=== PATIENT | female | born 1995 | race Caucasian/White ===

== ENCOUNTER 2020-02-26 13:44 | Emergency (ER) | payer BC, SELFPAY ==
[2020-02-26 13:55] VITALS: BP 111/76; PULSE 73; RESP 20; TEMP 36.7; O2SAT 100; BMI 17.7
--- NOTE | 2020-02-26 14:03 | HMH.EDUTC ---
[facility] [place] Impression: Laceration of left index finger Qualifiers: Encounter type: initial encounter Damage to nail status: without damage Foreign body presence: without foreign body Qualified Code(s): S61.211A - Laceration without foreign body of left index finger without damage to nail, initial encounter Disposition: Home, Self-Care Condition on Discharge: Good Instructions: How to Care for a Laceration After Repair, DI for Laceration Repair With Dermabond Additional Instructions: Keep the wound clean and dry. Watch the for signs of infection, such as redness, swelling, drainage, fever. etc. Take tylenol or ibuprofen for pain. Follow up with your regular doctor or return here for any problems. GO TO THE ER FOR ANY WORSENING SYMPTOMS OR CONCERNS. Referrals: Jersey Crook MD [Primary Care Provider] - Time of Disposition: 15:10 Medical Decision Making - Medical Records Medical records reviewed: No: I reviewed the patient's medical records. - Mike Inquiry Pt receiving controlled substance: No Vital Signs: 02/26/20 13:55 02/26/20 15:20 Temperature 98.1 F 98.1 F Temperature Source Oral Pulse Rate 73 Pulse Rate [Right Brachial] 73 Respiratory Rate 20 20 Blood Pressure 111/76 Blood Pressure [Right Arm] 111/76 Blood Pressure Mean [Right Arm] 87 Blood Pressure Source [Right Arm] Automatic Cuff Blood Pressure Position [Right Arm] Sitting 02 Sat by Pulse Oximetry 100 Oxygen Delivery Method Room Air Orders (Tests/Meds): ED MEDICATIONS Discontinued Medications Generic Name Dose Route Start Last Admin Trade Name Freq PRN Reason Stop Dose Admin Tetanus/Reduced Diphtheria/Acell Pertussis 0.5 ml 02/26/20 14:03 02/26/20 14:10 Adacel Tdap 0.5ml Syringe IM 02/26/20 14:04 0.5 ml .ONCE ONE Administration [facility] [place] - General Stated complaint: ao cut with knife L hand pointer finger Time Seen by Provider: 02/26/20 14:03 Mode of Arrival: Ambulatory Source of Information: Patient Limitations: No Limitations Description of Symptoms (Recalled from Triage Doc. by RN): LACERATION TO LEFT INDEX FINGER WITH KITCHEN KNIFE APPROX 45 MINUTES AGO. PATIENT UNSURE OF WHEN LAST TETANUS VACCINE WAS HEENT Symptoms (Recalled from RN notes): No Resp Symptoms (Recalled from RN notes): No Skin Symptoms (Recalled from RN notes): Yes MS Symptoms (Recalled from RN notes): No Functional Status (Recalled from RN notes): WNL - History of Present Illness Provider Complaint: She states that she was cutting open a package when the knife slipped and cut her left index finger near the tip. - Related Data Home Medications Medication Instructions Recorded Confirmed etonogestrel 68 mg subdermal SUBDERMAL each 09/02/19 11/20/19 implant Previous Rx's Medication Instructions Recorded diazepam 10 mg tablet 10 mg PO ONCE PRN #1 tab 10/07/19 oxycodone-acetaminophen 5 mg-325 1 tab PO Q4-6H PRN #7 tab 10/08/19 mg tablet oseltamivir 75 mg capsule 75 mg PO DAILY 10 Days #10 cap 12/28/19 Allergies Allergy/AdvReac Type Severity Reaction Status Date / Time No Known Allergies Allergy Verified 11/20/19 09:06 - Worker's Comp Is this a Worker's Comp case?: No [facility] History - Hepatitis A Screen Drug use history?: No High risk sexual behaviors?: No History of sexually transmitted infection?: No Currently employed?: No Childcare worker?: No Do you have indoor plumbing?: Yes Do you have electricity?: Yes Attestation statement:: This patient has been screened for Hepatitis A risk factors. I have reviewed the patient's past medical history: Yes Medical History: Denies:: Diabetes Mellitus Type 1, Diabetes Mellitus Type 2 Other Surgeries: Yes: No Previous Surgery Amputation: No Fractures: No - Social History Smoking Status: Never smoker Alcohol Intake: never Substance Use Type: denies use Occupational Status: other Housing: house Household Members:
[2020-02-26 15:20] VITALS: BP 111/76; PULSE 73; RESP 20; TEMP 36.7; O2SAT 100
== END 2020-02-26 15:23 | disposition home or self-care (01) ==
PROVIDERS: Emergency Provider Nurse Practitioner Family; PCP Family Medicine
DX: S61.211A Laceration without foreign body of left index finger without damage to nail, initial encounter (principal); W26.0XXA Contact with knife, initial encounter; Y92.019 Unspecified place in single-family (private) house as the place of occurrence of the external cause; Z23 Encounter for immunization
CPT/HCPCS: 12001; 90471; 90715; 99201

== ENCOUNTER 2021-09-19 14:06 | Emergency (ER) | payer BC, SELFPAY ==
[2021-09-19 14:08] VITALS: BP 132/93; PULSE 104; RESP 20; TEMP 36.7; O2SAT 100; BMI 23.8
--- NOTE | 2021-09-19 14:17 | ECG_ITS ---
APPROVED REPORT Exam: Resting ECG HR:106 bpm ECG Measurements Heart Rate [address] 122 P 67 QRSd 90 QRS 42 QT 344 T 54 QTc 456 Conclusion Sinus tachycardia RSR' or QR pattern in V1 suggests right ventricular conduction delay Borderline ECG Electronically signed by : Howard Ragland MD 09/20/2021 12:16:28
--- NOTE | 2021-09-19 15:01 | XR_ITS ---
PROCEDURE: XR CHEST PORTABLE CLINICAL HISTORY: chest pressure/heaviness COMPARISON: No exams were available for comparison FINDINGS: The cardiomediastinal silhouette and pulmonary vascularity are within normal limits. The lungs are clear without infiltrates, suspicious nodules, or pleural effusions. No acute bony abnormalities. IMPRESSION: No acute findings. Dictated by: Pierre Mcknight MD 09/19/2021 16:00 Pierre Mcknight MD in [place] 09/19/2021 16:00
--- NOTE | 2021-09-19 15:02 | HMH.EDGENADL ---
ED Disposition Clinical Impression: Atypical chest pain Disposition: Home, Self-Care Condition on Discharge: Good Instructions: DI for Atypical Chest Pain Referrals: Jersey Crook MD [Primary Care Provider] - - Critical Care Critical Care Time: No Attestation: On 09/19/21, the high probability of a clinically significant, sudden or life threatening deterioration of the following system(s) required my full and direct attention, intervention and personal management. The time I documented below is in addition to time spent performing reported procedures but includes the following listed in this critical care notation. Medical Decision Making - Mike Inquiry Pt receiving controlled substance: Yes Mike was queried for this patient: Yes Risks and benefits of using a controlled substance: were discussed with pt by me Vital Signs: 09/19/21 14:08 Temperature 98.0 F Temperature Source Oral Pulse Rate [Left Radial] 104 H Respiratory Rate 20 Blood Pressure [Right Arm] 132/93 H Blood Pressure Mean [Right Arm] 106 Blood Pressure Source [Right Arm] Automatic Cuff Blood Pressure Position [Right Arm] Sitting 02 Sat by Pulse Oximetry 100 Oxygen Delivery Method Room Air - Lab Data Lab Results 09/19/21 14:22: WBC 7.7, RBC 4.76, Hgb 14.6, Hct 43.3, MCV 90.9, MCH 30.6, MCHC 33.7, RDW 12.3, Plt Count 281, MPV 8.8, Neut % (Auto) 65.8, Lymph % (Auto) 27.6, [place] % (Auto) 4.8, Eos % (Auto) 1.2, Baso % (Auto) 0.8, Neut # (Auto) 5.1, Lymph # (Auto) 2.1, [place] # (Auto) 0.4, Eos # (Auto) 0.1, Baso # (Auto) 0.1 09/19/21 14:22: D-Dimer 0.66 H 09/19/21 14:22: Sodium 138, Potassium 3.4 L, Chloride 101, Carbon Dioxide 27, Anion Gap 13.4, BUN 14, Creatinine 0.70, Estimated Creat Clear 112, Estimated GFR 100, Est GFR ( Amer) 121, Glucose 118 H, Calcium 9.3, Total Bilirubin 0.3, AST 41 H, ALT 25, Alkaline Phosphatase 38, Troponin I < 0.01, Total Protein 7.6, Albumin 4.7, Globulin 2.9, Albumin/Globulin Ratio 1.6, Lipase 50 Result diagrams: 09/19/21 14:22 09/19/21 14:22 Orders (Tests/Meds): ED MEDICATIONS Discontinued Medications Generic Name Dose Route Start Last Admin Trade Name Daniel PRN Reason Stop Dose Admin Sodium Chloride 500 mls @ 999 mls/hr 09/19/21 15:15 09/19/21 15:12 Sod Chlor 0.9% 1000ml Bag IV 09/19/21 15:45 999 mls/hr .Q31M LON Administration Lorazepam 0.5 mg 09/19/21 15:02 09/19/21 15:12 Lorazepam 0.5mg Tablet PO 09/19/21 15:03 0.5 mg ONCE ONE Administration Ondansetron HCl 4 mg 09/19/21 15:01 09/19/21 15:12 Ondansetron 4mg/2ml Vial IV 09/19/21 15:02 4 mg ONCE ONE Administration ORDERS Category Date Time Status Troponin I Q3H Lab 09/19/21 18:15 Ordered Troponin I Q3H Lab 09/19/21 21:15 Ordered Medical Decision Narrative: DDx includes but not limited to toxic ingestion, PE, arrhythmia, ACS, pancreatitis. HDS, NAD, well appearing, mildly tachycardic, on room air. EKG shows sinus tachycardia without acute ischemic changes. Low risk Wells PE score, D dimer 0.66. Per YEARS criteria does not require advanced imaging for PE at this time. CXR without acute findings. Troponin wnl. Labs cbc and bmp, lipase without acute and actionable findings. Tachycardia improved in ED after receiving ivf bolus, ativan po. Stable for discharge. Given ED return precautions. General Adult HPI - General Chief complaint: Chest Pain Stated complaint: chest pressure Time Seen by Provider: 09/19/21 14:30 Mode of Arrival: Ambulatory Source of Information: Patient Limitations: No Limitations Description of Symptoms (Recalled from ER Triage Doc. by RN): c/o chest pressure with comes in waves after smoking thc - History of Present Illness HPI narrative: 25 yo female w/ no reported pmh presents for chest pain. patient states she took thc gummy earlier today by mouth then three hours later developing bilateral lower chest heaviness along with some generalized tremulousness. St
[2021-09-19 15:07] LABS: Basophils # 0.1 K/mm3 (0-0.2); Basophils % 0.8 % (0.1-2.0); Eosinophils # 0.1 K/mm3 (0.0-0.4); Eosinophils % 1.2 % (0.1-12.0); Hematocrit 43.3 % (37.0-47.0); Hemoglobin 14.6 g/dL (12.2-16.2); Lymphocytes # 2.1 K/mm3 (0.7-4.5); Lymphocytes % 27.6 % (10-50); Mean Corpuscular HGB Conc 33.7 g/dL (31.8-35.4); Mean Corpuscular Hemoglobin 30.6 pg (27.0-31.2); Mean Corpuscular Volume 90.9 fl (81-99); Mean Platelet Volume 8.8 fl (7.4-10.4); Monocytes # 0.4 K/mm3 (0.1-1.0); Monocytes % 4.8 % (1.7-9.3); Neutrophils # 5.1 K/mm3 (1.8-7.8); Neutrophils % 65.8 % (37.0-80.0); Platelet Count 281 K/mm3 (142-424); Red Blood Count 4.76 M/mm3 (4.20-5.40); Red Cell Distribution Width 12.3 % (11.5-17.5); White Blood Count 7.7 K/mm3 (4.8-10.8)
[2021-09-19 15:12] LABS: Alanine Aminotransferase 25 U/L (12-78); Albumin Level 4.7 g/dl (3.5-5.0); Albumin/Globulin Ratio 1.6 (1.1-1.8); Alkaline Phosphatase 38 U/L (38-126); Anion Gap 13.4 mEq/L (5-15); Aspartate Amino Transferase 41 U/L (14-36); Bilirubin,Total 0.3 mg/dl (0.2-1.3); Blood Urea Nitrogen 14 mg/dl (7-17); Calcium 9.3 mg/dl (8.4-10.2); Carbon Dioxide 27 mmol/L (22.0-30.0); Chloride 101 mmol/L (98-107); Creatinine Clearance Estimated 112 mL/min (50-200); Estimated Glomerular Filt Rate 100 ml/min (>60); GFR (African American) 121 ML/MIN (>60); Globulin 2.9 g/dL (1.3-3.2); Glucose 118 mg/dl (74-100); Lipase 50 U/L (23-300); Potassium 3.4 mmoL/L (3.5-5.1); Sodium 138 mmol/L (136-145); Total Protein,Serum 7.6 g/dl (6.3-8.2)
[2021-09-19 15:18] LABS: D-Dimer 0.66 ug/mL (0.0-0.5)
[2021-09-19 15:25] LABS: Troponin I < 0.01 ng/ml (0.00-0.034)
[2021-09-19 16:58] VITALS: BP 127/84; PULSE 92; RESP 18; TEMP 36.6; O2SAT 99
== END 2021-09-19 17:00 | disposition home or self-care (01) ==
PROVIDERS: Emergency Provider Student in an Organized Health Care Education/Training Program; PCP Family Medicine
DX: R07.89 Other chest pain (principal)
CPT/HCPCS: 71045; 80053; 83690; 84484; 85025; 85378; 93005; 96365; 96375; 99283; J2405

== ENCOUNTER → 2022-01-05 14:36 | Outpatient (CLI) | payer BC, SELFPAY ==
--- NOTE | 2022-01-05 14:40 | CT_ITS ---
FINAL REPORT TECHNIQUE: Multiple axial CT sections were performed from the foramen magnum to the vertex. Coronal reformatted images were also obtained. Precontrast and postcontrast injection images were obtained. This study was performed with technique to keep radiation doses as low as reasonably achievable, (ALARA). Individualized dose reduction techniques using automated exposure control or adjustment of mA and/or kV according to the patient size were employed. CLINICAL HISTORY: PERSISTENT HEADACHE patient states x several mos, worse in the last month and 1/2 FINDINGS: The ventricles are normal in size. There is no evidence of hemorrhage. No masses are identified. No extra-axial fluid collection is seen. The sinuses are normal. No osseous abnormality is seen on the bone window images. Postcontrast images demonstrate no abnormal enhancement. IMPRESSION: Unremarkable CT of the head with and without contrast. Reviewed, Interpreted and Dictated by Anthony Carpenter III, MD Transcribed by Miriam Lechuga Authenticated by Anthony Carpenter III, MD on 01/05/2022 04:06:23 PM [facility]
== END ==
LOC: RAD 14:36
PROVIDERS: PCP Family Medicine; Visit Provider Family Medicine
DX: G44.52 New daily persistent headache (NDPH) (principal)
CPT/HCPCS: 70470; Q9967

== ENCOUNTER 2022-04-05 11:05 | Emergency (ER) | payer BC, SELFPAY ==
[2022-04-05 11:21] VITALS: BP 111/70; PULSE 75; RESP 17; TEMP 36.7; O2SAT 99; BMI 24.5
--- NOTE | 2022-04-05 11:35 | HMH.EDUTC ---
[facility] [place] Clinical Impression: Viral syndrome, Gastroenteritis Disposition: Home, Self-Care Condition on Discharge: Good Instructions: Viral Gastroenteritis, DI for Viral Gastroenteritis -- Adult, Ondansetron Additional Instructions: Drink plenty of fluids. Take tylenol or ibuprofen for pain or fever. Take the medications as directed. Follow up with your regular doctor. GO TO THE ER FOR ANY WORSENING SYMPTOMS Prescriptions: Ondansetron [Zofran 4mg ODT] 4 mg PO Q8HP PRN #20 tab PRN Reason: Nausea Transmission Status: Received by [id number] Referrals: Jersey Crook MD [Primary Care Provider] - Forms: Work/School Release Time of Disposition: 12:38 Medical Decision Making - Medical Records Medical records reviewed: No: I reviewed the patient's medical records. - Mike Inquiry Pt receiving controlled substance: No Vital Signs: 04/05/22 11:21 04/05/22 12:59 Temperature 98.0 F 98.0 F Temperature Source Oral Pulse Rate 75 Pulse Rate [Left Radial] 75 Respiratory Rate 17 17 Blood Pressure 111/70 Blood Pressure [Right Arm] 111/70 Blood Pressure Mean [Right Arm] 83 02 Sat by Pulse Oximetry 99 Orders (Tests/Meds): ED MEDICATIONS Discontinued Medications Generic Name Dose Route Start Last Admin Trade Name Freq PRN Reason Stop Dose Admin Sodium Chloride 500 mls @ 999 mls/hr 04/05/22 12:15 04/05/22 12:22 Sod Chlor 0.9% 1000ml Bag IV 04/05/22 12:45 Not Given .Q31M LON Sodium Chloride 1,000 mls @ 999 mls/hr 04/05/22 12:30 04/05/22 12:22 Sod Chlor 0.9% 1000ml Bag IV 04/05/22 13:30 999 mls/hr .Q1H1M LON Administration Ondansetron HCl 4 mg 04/05/22 12:03 04/05/22 12:20 Ondansetron 4mg/2ml Vial IV 04/05/22 12:04 4 mg ONCE ONE Administration [facility] [place] - General Stated complaint: vomiting, diarrhea, fever Time Seen by Provider: 04/05/22 11:35 Description of Symptoms (Recalled from Triage Doc. by RN): patient comes in today for a stomach virus. patient complains of vomitting and diarrhea. patient states symptoms began sunday night. HEENT Symptoms (Recalled from RN notes): No Resp Symptoms (Recalled from RN notes): No Skin Symptoms (Recalled from RN notes): No MS Symptoms (Recalled from RN notes): No Functional Status (Recalled from RN notes): wnl - History of Present Illness Provider Complaint: She states that she has had n/v/d for the past 3 days. Her vomiting has stopped, but she has continued to have the diarrhea. She denies any cough, congestion. - Related Data Previous Rx's Medication Instructions Recorded Ondansetron [Zofran 4mg ODT] 4 mg PO Q8HP PRN #20 tab 04/05/22 Allergies Allergy/AdvReac Type Severity Reaction Status Date / Time No Known Allergies Allergy Verified 04/05/22 11:24 - Worker's Comp Is this a Worker's Comp case?: No [facility] History - Hepatitis A Screen Attestation statement:: This patient has been screened for Hepatitis A risk factors. I have reviewed the patient's past medical history: Yes Medical History: Denies:: Diabetes Mellitus Type 1, Diabetes Mellitus Type 2 Other Surgeries: Yes: No Previous Surgery Amputation: No Fractures: No - Social History Smoking Status: Never smoker Alcohol Intake: never Alcohol Intake Frequency:: other Substance Use Type: denies use Occupational Status: employed Housing: house Household Members: family Family Hx:: Non-contributory Comment: Preg#1-[place]ligo ROS Obtained: Yes All systems reviewed & no additional complaints - Constitutional Constitutional: Reports as per HPI - Eyes Eyes: Denies eye discharge - ENT Ears, Nose, Mouth, and Throat: Reports as per HPI - Cardiovascular Cardiovascular: Denies chest pain - Respiratory Respiratory: Denies chest congestion, Denies cough, Denies dyspnea, Denies stridor, Denies wheezing - Gastrointestinal Gastrointestingal: Reports: as per HPI - Genitourinary F
[2022-04-05 12:59] VITALS: BP 111/70; PULSE 75; RESP 17; TEMP 36.7
== END 2022-04-05 12:59 | disposition home or self-care (01) ==
PROVIDERS: Emergency Provider Nurse Practitioner Family; PCP Family Medicine
DX: B34.9 Viral infection, unspecified (principal); K52.9 Noninfective gastroenteritis and colitis, unspecified
CPT/HCPCS: 96374; 99212; G0463; J2405

== ENCOUNTER → 2022-09-05 12:05 | Outpatient (CLI) | payer BC, SELFPAY ==
[2022-09-05 12:47] LABS: Adenovirus,PCR Not Detected (NotDetected); Bordetella Pertussis Not Detected (NotDetected); Chlamydophila Pneumoniae, PCR Not Detected (NotDetected); Coronavirus 19, PCR Not Detected (NotDetected); Coronavirus 229E Not Detected (NotDetected); Coronavirus NL63 Not Detected (NotDetected); Coronavirus OC43 Not Detected (NotDetected); Coronovirus HKU1,PCR Not Detected (NotDetected); Human Metapneumovirus Not Detected (NotDetected); Influenza A, PCR Not Detected (NotDetected); Influenza AH1, 2009 Not Detected (NotDetected); Influenza AH1, PCR Not Detected (NotDetected); Influenza AH3,PCR Not Detected (NotDetected); Influenza B, PCR Not Detected (NotDetected); Mycoplasma Pneumoniae, PCR Not Detected (NotDetected); Parainfluenza 2, PCR Not Detected (NotDetected); Parainfluenza 3, PCR Not Detected (NotDetected); Parainfluenza 4, PCR Not Detected (NotDetected); Respiratory Syncytial Virus Not Detected (NotDetected); Rhinovirus/Enterovirus Not Detected (NotDetected)
[2022-09-05 13:00] LABS: Basophils # 0.1 K/mm3 (0-0.2); Basophils % 2.6 % (0.1-2.0); Eosinophils # 0.1 K/mm3 (0.0-0.4); Eosinophils % 0.9 % (0.1-12.0); Hematocrit 41.9 % (37.0-47.0); Hemoglobin 13.5 g/dL (12.2-16.2); Lymphocytes # 1.6 K/mm3 (0.7-4.5); Lymphocytes % 29.8 % (10-50); Mean Corpuscular HGB Conc 32.3 g/dL (31.8-35.4); Mean Corpuscular Hemoglobin 29.7 pg (27.0-31.2); Mean Corpuscular Volume 91.9 fl (81-99); Mean Platelet Volume 8.5 fl (7.4-10.4); Monocytes # 0.4 K/mm3 (0.1-1.0); Monocytes % 8.2 % (1.7-9.3); Neutrophils # 3.1 K/mm3 (1.8-7.8); Neutrophils % 58.5 % (37.0-80.0); Platelet Count 234 K/mm3 (142-424); Red Blood Count 4.56 M/mm3 (4.20-5.40); Red Cell Distribution Width 12.9 % (11.5-17.5); White Blood Count 5.4 K/mm3 (4.8-10.8)
[2022-09-06 01:03] LABS: Parainfluenza 1, PCR Detected (NotDetected)
== END ==
PROVIDERS: PCP Family Medicine; Visit Provider Family Medicine
DX: Z20.822 Contact with and (suspected) exposure to COVID-19 (principal); J12.2 Parainfluenza virus pneumonia
CPT/HCPCS: 36415; 85025; 87581; 87632; 87798; C9803; U0003; U0005

== ENCOUNTER → 2022-10-11 15:25 | Outpatient (CLI) | payer BC, SELFPAY | PROVIDERS: PCP Family Medicine; Visit Provider Nurse Practitioner Obstetrics & Gynecology | DX: Z34.90 Encounter for supervision of normal pregnancy, unspecified, unspecified trimester (principal) | CPT/HCPCS: 36415; 84702 ==

== ENCOUNTER → 2022-10-18 11:50 | Outpatient (CLI) | payer BC, SELFPAY ==
[2022-10-18 12:35] LABS: Basophils # 0.1 K/mm3 (0-0.2); Basophils % 0.5 % (0.1-2.0); Eosinophils # 0.1 K/mm3 (0.0-0.4); Eosinophils % 0.8 % (0.1-12.0); Hematocrit 38.4 % (37.0-47.0); Hemoglobin 13.1 g/dL (12.2-16.2); Mean Corpuscular HGB Conc 34.1 g/dL (31.8-35.4); Mean Corpuscular Hemoglobin 31.5 pg (27.0-31.2); Mean Corpuscular Volume 92.2 fl (81-99); Mean Platelet Volume 8.4 fl (7.4-10.4); Monocytes # 0.4 K/mm3 (0.1-1.0); Monocytes % 4.6 % (1.7-9.3); Neutrophils # 6.5 K/mm3 (1.8-7.8); Neutrophils % 72.1 % (37.0-80.0); Platelet Count 266 K/mm3 (142-424); Red Blood Count 4.16 M/mm3 (4.20-5.40); Red Cell Distribution Width 13.4 % (11.5-17.5)
[2022-10-18 18:56] LABS: Amphetamine/Metha Screen,Urine Negative ng/ml (<1000); Benzodiazepines Screen,Urine Negative ng/ml (<200)
[2022-10-18 18:57] LABS: Barbiturates Screen,Urine Negative ng/ml (<200); Cannabinoid Screen,Urine Negative ng/ml (<50)
[2022-10-18 18:58] LABS: Cocaine Screen,Urine Negative ng/ml (<300)
[2022-10-18 18:59] LABS: Methadone Screen,Urine Negative ng/ml (<300); Opiate Screen,Urine Negative ng/ml (<300)
[2022-10-18 19:00] LABS: Phencyclidine Screen,Urine Negative ng/ml (<25)
[2022-10-19 07:05] LABS: Rubella Antibodies, IgG <0.90 index (Immune >0.99)
[2022-10-19 09:32] LABS: Rapid Plasma Reagin Ab Titer Non Reactive (NonRea<1:1)
[2022-10-21 14:25] LABS: Neisseria gonorrhoeae, NAA Negative (Negative)
[2022-10-30 21:18] LABS: HIV Screen 4th Generation wRfx NON REACTIVE; Hepatitis B Surface Antigen NEAGTIVE; Hepatitis C Antibody <0.1
== END ==
PROVIDERS: PCP Family Medicine; Visit Provider Obstetrics & Gynecology
DX: Z34.90 Encounter for supervision of normal pregnancy, unspecified, unspecified trimester (principal)
CPT/HCPCS: 36415; 80305; 85025; 86593; 86703; 86762; 86850; 87086; 87340; 87380; 87491; 87591; G0432

== ENCOUNTER → 2022-12-14 13:28 | Outpatient (CLI) | payer BC, SELFPAY ==
--- NOTE | 2022-12-14 13:28 | US_ITS ---
FINAL REPORT CLINICAL HISTORY: 20 week anatomy scan FINDINGS: There is a single live intrauterine gestation. Presentation is breech. The cervix is closed and measures 3.14 cm. Placenta is anterior, grade 1. movement is noted. Cardiac activity is noted. Heart rate measured at 149 beats per minute. Three-vessel cord with satisfactory umbilical cord insertion. Four-chamber heart is noted. brain and ventricles are unremarkable. Chest and diaphragm are unremarkable. ABDOMEN: Kidneys are not well visualized. Stomach is unremarkable. SPINE: No anomalies identified. Both arms and legs noted. AMNIOTIC FLUID: Appropriate amount. MEASUREMENTS: ULTRASOUND AGE: 19 weeks 0 days. GESTATION AGE: 19 weeks 0 days. ESTIMATED WEIGHT: 275 g GROWTH PERCENTILE: 53% LMP percentile BPD: 4.3 cm corresponding with 19 weeks 1 days. OFD: 5.4 cm corresponding with 19 weeks 1 days. HC: 15.4 cm corresponding with 18 weeks 3 days. AC: 14.2 cm corresponding with 19 weeks 4 days. FL: 2.9 cm corresponding with 18 weeks 6 days. CEREBELLUM: 1.9 cm corresponding with 19 weeks 3 days. HUMERUS: 2.9 cm corresponding with 19 weeks 3 days. HC/AC: 1.09 CI: 80% FL/BPD: 67% FL/AC: 20% IMPRESSION: Single living IUP with an ultrasound age of 19 weeks 0 days. No gross anomalies noted. Reviewed, Interpreted and Dictated by Rani Patel MD Transcribed by Miriam Lechuga Authenticated and [facility]
== END ==
PROVIDERS: PCP Family Medicine; Visit Provider Obstetrics & Gynecology
DX: Z34.90 Encounter for supervision of normal pregnancy, unspecified, unspecified trimester (principal); Z3A.20 20 weeks gestation of pregnancy
CPT/HCPCS: 76811

== ENCOUNTER → 2023-01-01 09:21 | Outpatient (CLI) | payer BC, SELFPAY ==
--- NOTE | 2023-01-01 09:22 | US_ITS ---
FINAL REPORT CLINICAL HISTORY: re-scan previous poorly seen kidneys FINDINGS: A limited ultrasound was performed for re-evaluation of the kidneys. Presentation is cephalic. The placenta is anterior. The fetus is active. The cervix measures 3.2 cm. Cardiac activity measures 150 beats per minute. The kidneys are visualized and appear normal. IMPRESSION: Limited exam demonstrates normal appearance of kidneys. Reviewed, Interpreted and Dictated by Anthony Carpenter III, MD Transcribed by Miriam Lechuga Authenticated and [facility]
== END ==
PROVIDERS: PCP Family Medicine; Visit Provider Obstetrics & Gynecology
DX: Z34.90 Encounter for supervision of normal pregnancy, unspecified, unspecified trimester (principal); Z3A.20 20 weeks gestation of pregnancy
CPT/HCPCS: 76816

== ENCOUNTER 2023-02-06 15:17 | Outpatient (CLI) | payer BC, SELFPAY ==
[2023-02-06 15:43] VITALS: BMI 27.8
[2023-02-06 15:49] VITALS: BMI 27.8
[2023-02-06 15:53] LABS: Microscopic, Urine URINE MICROSCOPIC (MICROSCOPIC)
[2023-02-06 15:55] LABS: Appearance,Urine CLEAR (Clear); Bilirubin,Urine Negative (Negative); Blood, Urine Negative (Negative); Color,Urine YELLOW (Yellow); Glucose,Urine (UA) Negative (Negative); Ketones,Urine Negative (Negative); Leukocyte Esterase,Urine Negative (Negative); Nitrate,Urine Negative (Negative); PH,Urine 6.5 (5.0-8.5); Protein,Urine Negative (Negative); Urobilinogen,Urine 0.2 EU/dl (0.2)
[2023-02-06 16:06] LABS: Amphetamine/Metha Screen,Urine Negative ng/ml (<1000)
[2023-02-06 16:07] LABS: Barbiturates Screen,Urine Negative ng/ml (<200); Benzodiazepines Screen,Urine Negative ng/ml (<200)
[2023-02-06 16:08] LABS: Cannabinoid Screen,Urine Negative ng/ml (<50); Cocaine Screen,Urine Negative ng/ml (<300)
[2023-02-06 16:09] LABS: Methadone Screen,Urine Negative ng/ml (<300)
[2023-02-06 16:10] LABS: Opiate Screen,Urine Negative ng/ml (<300); Phencyclidine Screen,Urine Negative ng/ml (<25)
[2023-02-06 16:26] LABS: Bacteria,Urine Trace /lpf
== END 2023-02-06 16:30 | disposition home or self-care (01) ==
LOC: OBOUT 15:19 → OB 15:19
PROVIDERS: Obstetrics & Gynecology; PCP Family Medicine; Visit Provider Obstetrics & Gynecology
DX: O36.8120 Decreased fetal movements, second trimester, not applicable or unspecified (principal); Z3A.27 27 weeks gestation of pregnancy; R10.30 Lower abdominal pain, unspecified
CPT/HCPCS: 59025; 80305; 81001

== ENCOUNTER → 2023-02-08 08:16 | Outpatient (CLI) | payer BC, SELFPAY ==
[2023-02-08 08:35] LABS: Basophils % 0.5 % (0.1-2.0); Eosinophils # 0.1 K/mm3 (0.0-0.4); Eosinophils % 1.1 % (0.1-12.0); Hematocrit 37.7 % (37.0-47.0); Hemoglobin 12.3 g/dL (12.2-16.2); Lymphocytes # 1.7 K/mm3 (0.7-4.5); Lymphocytes % 19.8 % (10-50); Mean Corpuscular HGB Conc 32.5 g/dL (31.8-35.4); Mean Corpuscular Hemoglobin 30.2 pg (27.0-31.2); Mean Corpuscular Volume 92.9 fl (81-99); Mean Platelet Volume 8.6 fl (7.4-10.4); Monocytes # 0.5 K/mm3 (0.1-1.0); Neutrophils # 6.3 K/mm3 (1.8-7.8); Neutrophils % 72.6 % (37.0-80.0); Platelet Count 232 K/mm3 (142-424); Red Blood Count 4.06 M/mm3 (4.20-5.40); Red Cell Distribution Width 13.7 % (11.5-17.5); White Blood Count 8.6 K/mm3 (4.8-10.8)
[2023-02-08 08:47] LABS: Glucose,Fasting 83 mg/dl (74-100)
[2023-02-08 10:05] LABS: Glucose 1 Hour 113 mg/dL (74-100)
== END ==
PROVIDERS: PCP Family Medicine; Visit Provider Obstetrics & Gynecology
DX: Z34.90 Encounter for supervision of normal pregnancy, unspecified, unspecified trimester (principal); Z3A.19 19 weeks gestation of pregnancy
CPT/HCPCS: 36415; 82951; 85025

== ENCOUNTER → 2023-02-21 15:19 | Outpatient (CLI) | payer BC, SELFPAY | PROVIDERS: PCP Family Medicine; Visit Provider Obstetrics & Gynecology | DX: O26.899 Other specified pregnancy related conditions, unspecified trimester (principal); Z67.91 Unspecified blood type, Rh negative | CPT/HCPCS: 36415 ==

== ENCOUNTER 2023-02-22 16:22 | Outpatient (CLI) | payer BC, SELFPAY ==
[2023-02-22 16:47] VITALS: BMI 29.0
[2023-02-22 16:57] LABS: Microscopic, Urine URINE MICROSCOPIC (MICROSCOPIC)
[2023-02-22 16:59] VITALS: BP 111/70; PULSE 97; RESP 18; TEMP 36.9; O2SAT 98
[2023-02-22 17:04] LABS: Appearance,Urine CLEAR (Clear); Bilirubin,Urine Negative (Negative); Blood, Urine TRACE-I (Negative); Color,Urine YELLOW (Yellow); Glucose,Urine (UA) TRACE (Negative); Ketones,Urine Negative (Negative); Leukocyte Esterase,Urine Negative (Negative); Nitrate,Urine Negative (Negative); PH,Urine 7.5 (5.0-8.5); Protein,Urine Negative (Negative); Specific Gravity, Urine 1.015 (1.005-1.030); Urobilinogen,Urine 0.2 EU/dl (0.2)
[2023-02-22 17:15] LABS: Barbiturates Screen,Urine Negative ng/ml (<200)
[2023-02-22 17:16] VITALS: BP 111/70; PULSE 97; RESP 18; TEMP 36.9; O2SAT 98; BMI 29.0
[2023-02-22 17:16] LABS: Benzodiazepines Screen,Urine Negative ng/ml (<200)
[2023-02-22 17:17] LABS: Amphetamine/Metha Screen,Urine Negative ng/ml (<1000); Methadone Screen,Urine Negative ng/ml (<300)
[2023-02-22 17:18] LABS: Cannabinoid Screen,Urine Negative ng/ml (<50)
[2023-02-22 17:19] LABS: Cocaine Screen,Urine Negative ng/ml (<300); Opiate Screen,Urine Negative ng/ml (<300)
[2023-02-22 17:20] LABS: Phencyclidine Screen,Urine Negative ng/ml (<25)
[2023-02-22 18:37] LABS: RBC,Urine Occasional #/hpf (0-3); Squamous Epithelial Cell,Urine Occasional #/hpf (0-5)
--- NOTE | 2023-02-23 12:29 | P.PN_ITS ---
Subjective *Date: 02/22/23 *Time: 17:00 Interval history: She is here for observation after suffering a fall. She is 29 weeks gestational age. She did not fall on her stomach but tripped when walking her dog. She fell on her knee and left arm. There is no trauma. Medical Exam Vital signs and Labs for Last 24 Hours: Vital Signs Temp Pulse Resp BP Pulse Ox 02/22/23 17:16 98.5 F 97 H 18 111/70 98 02/22/23 16:59 98.5 F 97 H 18 111/70 98 Laboratory Results - last 24 hr 02/22/23 16:45: Urine Color Yellow, Urine Appearance Clear, Urine pH 7.5, Ur Specific [place] 1.015, Urine Protein Negative, Urine Glucose (UA) Trace, Urine Ketones Negative, Urine Blood Trace-i, Urine Nitrate Negative, Urine Bilirubin Negative, Urine Urobilinogen 0.2, Ur Leukocyte Esterase Negative, Urine RBC Occasional, Urine WBC None, Ur Squamous Epith Cells Occasional, Urine Bacteria None 02/22/23 16:45: Urine Opiates Screen Negative, Urine Methadone Screen Negative, Ur Barbituates Screen Negative, Ur Phencyclidine Scrn Negative, Ur Amphetamines Screen Negative, U Benzodiazepines Scrn Negative, Urine Cocaine Screen Negative, U Marijuana (THC) Screen Negative I & O for Labs for Last 24 Hours: Intake & Output 02/21/23 02/22/23 02/23/23 02/24/23 11:59 11:59 11:59 11:59 Weight 159 lb Head: Present atraumatic Neck: Present normal inspection Respiratory: Present normal respiratory effort; Absent accessory muscle use GI: Present soft; Absent tenderness or guarding Assessment and Plan *Assessment and plan (1) disorder due to maternal traumatic injury: Status: Acute Category: Medical Plan She fell around 330 this afternoon. The nonstress test is reactive. The baby is active. She denies any vaginal bleeding or abdominal pain. She does not think that she fell on her abdomen. We will observe her for 6 hours per protocol and then send her home. She will follow-up with Dr. Goins.
== END 2023-02-22 21:01 | disposition home or self-care (01) ==
LOC: OBOUT 16:25 → OB 16:26
PROVIDERS: Nurse Practitioner Obstetrics & Gynecology; PCP Family Medicine; Visit Provider Obstetrics & Gynecology
DX: O26.893 Other specified pregnancy related conditions, third trimester (principal); Z3A.29 29 weeks gestation of pregnancy; W19.XXXA Unspecified fall, initial encounter
CPT/HCPCS: 59025; 80305; 81001; G0463

== ENCOUNTER 2023-04-09 13:05 | Outpatient (CLI) | payer BC, SELFPAY ==
[2023-04-09 13:10] VITALS: BP 115/74; PULSE 106; RESP 20; TEMP 36.7; O2SAT 97; BMI 31.6
[2023-04-09 13:20] VITALS: BP 115/74; PULSE 107; RESP 20; TEMP 36.7; O2SAT 97; BMI 31.6
[2023-04-09 13:38] LABS: Appearance,Urine CLEAR (Clear); Bilirubin,Urine Negative (Negative); Blood, Urine TRACE-I (Negative); Color,Urine YELLOW (Yellow); Glucose,Urine (UA) Negative (Negative); Ketones,Urine Negative (Negative); Leukocyte Esterase,Urine Negative (Negative); Microscopic, Urine URINE MICROSCOPIC (MICROSCOPIC); Nitrate,Urine Negative (Negative); PH,Urine 7.5 (5.0-8.5); Protein,Urine Negative (Negative); Urobilinogen,Urine 0.2 EU/dl (0.2)
[2023-04-09 13:51] LABS: Amphetamine/Metha Screen,Urine Negative ng/ml (<1000); Barbiturates Screen,Urine Negative ng/ml (<200)
[2023-04-09 13:52] LABS: Benzodiazepines Screen,Urine Negative ng/ml (<200)
[2023-04-09 13:53] LABS: Cannabinoid Screen,Urine Negative ng/ml (<50); Cocaine Screen,Urine Negative ng/ml (<300)
[2023-04-09 13:54] LABS: Methadone Screen,Urine Negative ng/ml (<300)
[2023-04-09 13:55] LABS: Opiate Screen,Urine Negative ng/ml (<300); Phencyclidine Screen,Urine Negative ng/ml (<25)
[2023-04-09 14:17] LABS: Bacteria,Urine Trace /lpf; RBC,Urine Occasional #/hpf (0-3); Squamous Epithelial Cell,Urine Occasional #/hpf (0-5)
== END 2023-04-09 14:47 | disposition home or self-care (01) ==
LOC: OBOUT 13:06 → OB 13:07
PROVIDERS: PCP Family Medicine; Visit Provider Obstetrics & Gynecology
DX: O47.03 False labor before 37 completed weeks of gestation, third trimester (principal); Z3A.35 35 weeks gestation of pregnancy
CPT/HCPCS: 59025; 80305; 81001; G0463

== ENCOUNTER → 2023-04-12 16:35 | Outpatient (CLI) | payer BC, SELFPAY | PROVIDERS: Visit Provider Obstetrics & Gynecology | DX: Z34.93 Encounter for supervision of normal pregnancy, unspecified, third trimester (principal); Z3A.36 36 weeks gestation of pregnancy | CPT/HCPCS: 86403 ==

== ENCOUNTER 2023-05-07 12:41 | Inpatient (IN) | payer BC, SELFPAY ==
[2023-05-07 09:31] VITALS: BMI 32.7
[2023-05-07 09:39] LABS: Microscopic, Urine URINE MICROSCOPIC (MICROSCOPIC)
[2023-05-07 09:41] LABS: Fetal Membrane Rupture (Rapid) Negative (Negative)
[2023-05-07 09:44] LABS: Appearance,Urine CLEAR (Clear); Bilirubin,Urine Negative (Negative); Blood, Urine TRACE-I (Negative); Color,Urine YELLOW (Yellow); Glucose,Urine (UA) TRACE (Negative); Ketones,Urine Negative (Negative); Leukocyte Esterase,Urine Negative (Negative); Nitrate,Urine Negative (Negative); Protein,Urine TRACE (Negative); Specific Gravity, Urine >= 1.030 (1.005-1.030)
--- NOTE | 2023-05-07 10:12 | US_ITS ---
PROCEDURE: US OB BIOPHYSICAL PROFILE CLINICAL INDICATION: SHERYL level COMPARISON: January 01, 2023 FINDINGS: From her last menstrual period she is 39weeks 4days. The following parameters are obtained: Viable fetus in the cephalic presentation. Amniotic fluid index: 7.93cm Qualitative AFV: 2 breathing movements: 2 Gross body movements: 2 Tone: 2 Biophysical profile score: 8 No obvious anomalies evident. three-vessel cord appears normal. Four-chamber view appears normal. Placenta: Anterior grade 2 IMPRESSION: 1. Viable fetus in the cephalic presentation with an anterior placenta grade 2. 2. The fluid is subjectively low but the amniotic fluid index is 7.93 cm. 3. Biophysical profile is 8/8 with good breathing movement seen. Dictated by: Luis A Aguilar MD 05/08/2023 08:20 Luis A Aguilar MD in [place] 05/08/2023 08:20
[2023-05-07 10:20] LABS: Squamous Epithelial Cell,Urine Occasional #/hpf (0-5); WBC,Urine Occasional #/hpf (0-3)
[2023-05-07 10:51] LABS: Fetal Membrane Rupture (Rapid) Negative (Negative)
--- NOTE | 2023-05-07 12:47 | HMH.PHAINT1 ---
Pharmacy Intervention Comments: MEDICATION RECONCILIATION COMPLETED ON PATIENT USING EXTERNAL FILL HISTORY FROM PHARMACY. -TODD ROWLEY, LUCASD
[2023-05-07 13:09] LABS: Coronavirus 19, PCR Not Detected (NotDetected); Influenza A, PCR Not Detected (NotDetected); Influenza B, PCR Not Detected (NotDetected)
[2023-05-07 13:10] LABS: Basophils % 0.4 % (0.1-2.0); Eosinophils % 0.6 % (0.1-12.0); Hemoglobin 12.2 g/dL (12.2-16.2); Lymphocytes # 1.6 K/mm3 (0.7-4.5); Mean Corpuscular Volume 84.3 fl (81-99); Mean Platelet Volume 9.7 fl (7.4-10.4); Monocytes # 0.5 K/mm3 (0.1-1.0); Monocytes % 6.7 % (1.7-9.3); Neutrophils # 5.3 K/mm3 (1.8-7.8); Neutrophils % 71.3 % (37.0-80.0); Platelet Count 287 K/mm3 (142-424); Red Blood Count 4.51 M/mm3 (4.20-5.40); Red Cell Distribution Width 15.1 % (11.5-17.5); White Blood Count 7.4 K/mm3 (4.8-10.8)
--- NOTE | 2023-05-07 13:37 | EXP.HP ---
History of Present Illness *Admission Date: 05/07/23 *Reason for visit:: Suspected ruptured membranes *History of present illness: She is a healthy 27-year-old 3 para 2 who is 39 and 4 weeks gestational age. She came in with leaking fluid. We have tested her AmniSure twice and it is negative. We did an ultrasound that showed a biopsy profile of 8 out of 8 along with an amniotic fluid index that was 7.9 which is normal. She is having occasional contraction. Her cervix is just 1 cm. [facility] Disclaimer: The information contained in this section may have been updated after the patient was seen, as this information can be updated by other users. 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 Headache in Heartburn during Rh negative state in antepartum period Rubella non-immune status, antepartum Family History Diabetes Cancer Social History Smoking Status: Never smoker alcohol intake: current substance use type: denies use current occupational status: employed Travel in the last 8 weeks: None household members: family housing: house Review of Systems Review of Systems Review of systems:: pertinent systems reviewed and negative unless documented below Meds Home Medications and Allergies Home Medications Medication Instructions Recorded Confirmed Type prenat.vits,viraj,pbm-bqdd-secpb 1 tab PO DAILY Supplement 11/07/22 05/07/23 History pantoprazole 40 mg tablet,delayed 40 mg PO DAILY Acid Reflux 05/07/23 05/07/23 History release New Prescriptions to Start Prescriptions: Allergies Allergy/AdvReac Type Severity Reaction Status Date / Time No Known Allergies Allergy Verified 04/30/23 16:05 Exam Data for Last 24 hours Vital signs and Labs for Last 24 Hours: Laboratory Results - last 24 hr 05/07/23 09:10: Urine Color Yellow, Urine Appearance Clear, Urine pH 6.0, Ur Specific [place] >= 1.030, Urine Protein Trace, Urine Glucose (UA) Trace, Urine Ketones Negative, Urine Blood Trace-i, Urine Nitrate Negative, Urine Bilirubin Negative, Urine Urobilinogen 1.0, Ur Leukocyte Esterase Negative, Urine RBC None, Urine WBC Occasional, Ur Squamous Epith Cells Occasional, Urine Bacteria None, Membrane Rupture Negative 05/07/23 09:42: WBC 7.4, RBC 4.51, Hgb 12.2, Hct 38.0, MCV 84.3, MCH 27.0, MCHC 32.0, RDW 15.1, Plt Count 287, MPV 9.7, Neut % (Auto) 71.3, Lymph % (Auto) 21.0, [place] % (Auto) 6.7, Eos % (Auto) 0.6, Baso % (Auto) 0.4, Neut # (Auto) 5.3, Lymph # (Auto) 1.6, [place] # (Auto) 0.5, Eos # (Auto) 0.0, Baso # (Auto) 0.0 05/07/23 10:20: Membrane Rupture Negative I & O for Last 24 hours: Intake & Output 05/05/23 05/06/23 05/07/23 05/08/23 11:59 11:59 11:59 11:59 Weight 179 lb Constitutional Constitutional: no acute distress *Routine HEENT Exam Head: Present normocephalic Eye: Present EOMI and PERRL ENT: Present mucous membranes moist *Routine Neck Exam Neck: Present supple; Absent lymphadenopathy *Routine Respiratory Exam Respiratory: Present CTA bilaterally *Routine Cardiovascular Exam Cardiovascular: Present RRR *Routine Abdominal Exam Abdominal: Present soft and normoactive bowel sounds; Absent tenderness *Routine Rectal Exam Rectal:: deferred *Routine Genitalia Exam Genitalia:: deferred *Routine Extremities Exam Extremities: Absent cyanosis, clubbing or edema *Routine Skin Exam Skin: Present warm; Absent rash *Routine Neurological Exam Neurological: Present alert and oriented X3 Assessment and Plan *Assessment and plan (1) Rubella non-immune status, antepartum: Status: Acute Category: Medical Code(s): O09.899 - Supervision of other high risk pregnancies, unspecified trimester; Z28.39 - Other underimmunization status (2) Rh negative state in ant
[2023-05-07 14:11] VITALS: BP 101/58; PULSE 88; RESP 18; TEMP 36.8; O2SAT 97; BMI 32.7
[2023-05-07 14:23] VITALS: BP 101/58; PULSE 88; RESP 18; TEMP 36.8; O2SAT 97
[2023-05-07 15:38] LABS: Barbiturates Screen,Urine Negative ng/ml (<200); Benzodiazepines Screen,Urine Negative ng/ml (<200)
[2023-05-07 15:39] LABS: Amphetamine/Metha Screen,Urine Negative ng/ml (<1000)
[2023-05-07 15:41] LABS: Cocaine Screen,Urine Negative ng/ml (<300)
[2023-05-07 15:42] LABS: Methadone Screen,Urine Negative ng/ml (<300)
[2023-05-07 15:43] LABS: Opiate Screen,Urine Negative ng/ml (<300)
[2023-05-07 23:53] LABS: Cannabinoid Screen,Urine Negative ng/ml (<50)
[2023-05-07 23:54] LABS: Phencyclidine Screen,Urine Negative ng/ml (<25)
--- NOTE | 2023-05-08 01:27 | P.PN_ITS ---
[facility] Disclaimer: The information contained in this section may have been updated after the patient was seen, as this information can be updated by other users. 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 Headache in Heartburn during Rh negative state in antepartum period Rubella non-immune status, antepartum Family History Other Cancer Diabetes Social History Smoking Status: Never smoker alcohol intake: current substance use type: denies use current occupational status: employed Travel in the last 8 weeks: None household members: family housing: house [facility] Anesthesia Checklist Patient Identification Patient Identification: Arm Band and Verbal (Name & ) Structural Data Admitted From: Inpatient Planned Operative Procedure/s: Labor epidural Consent for Planned Operative Procedure(s) Verified: Yes NPO Status Verified Time NPO: 00:00 Chart Verification Results Verified: CBC Additional verifications Patient : Yes Airway Assessment C-Spine Mobility Assessed: Yes TMJ Mobility Assessed: Yes Dentition: Good Dentition Neurological Assessment Level of Consciousness: Awake Hx Seizures: No Numbness or tingling in extremities: No Anesthesia Plan Anesthesia Risk discussed: Yes Anesthesia Plan: Verified ASA Class: II Anesthesia Type: Epidural
--- NOTE | 2023-05-08 04:32 | EXP.LABOR.NO ---
Labor Note Subjective: Date: 05/08/23 Time: 04:32 regular contraction Objective: NST:: Reactive Contractions:: every 2-3 minutes Cervical Dilation:: 9-10 Effacement:: 100% Station: +1 Membranes: spontaneously ruptured Fetus: Monitoring?: Yes monitoring type:: External Assessment: Labor progressing?: Yes Cephalopelvic disproportion?: No Plan: Anesthesia for epidural?: Yes Continue to labor down?: Yes Plan for ?: No Continue to monitor?: Yes Start pushing?: Yes Continue pushing?: Yes Comment:: We are having her push. The head is still a little high. There is some molding of the head. Nonstress test is reactive. We will continue to expect a vaginal delivery.
--- NOTE | 2023-05-08 05:40 | EXP.LABOR.NO ---
Labor Note Subjective: Date: 05/08/23 Time: 05:40 regular contraction Objective: NST:: Reactive Contractions:: every 4-5 minutes Cervical Dilation:: 9-10 Effacement:: 100% Station: +3 Membranes: spontaneously ruptured Fetus: Monitoring?: Yes monitoring type:: External Assessment: Labor progressing?: Yes Cephalopelvic disproportion?: No Plan: Anesthesia for epidural?: Yes Continue to labor down?: Yes Plan for ?: No Continue to monitor?: Yes Start pushing?: Yes Continue pushing?: Yes Comment:: head coming down
--- NOTE | 2023-05-08 05:55 | P.PCN_ITS ---
Delivery Note Delivery Date:: 05/08/23 Delivery Time:: 05:46 Anesthesia Type: Epidural Was labor medically induced?: Yes Induction method: per misoprostol protocol Gestational age (weeks): 39 Infant delivered prior to 39 weeks?: No Justification for early elective delivery:: Active Labor Gender: Male at 1 minute: 7 at 5 minutes: 9 LAC or MLE?: LAC Delivery Procedure:: She is a 27-year-old 2 para 1 at 39+ weeks gestational age. She arrived with what was thought to be ruptured membranes but AmniSure was negative twice. She continued to leak and we suspected that she was ruptured so we elected to induce her labor. She was just found to be 1 cm dilated so we inserted Cervidil overnight. Under labor epidural she progressed to full dilation and delivered spontaneously a liveborn male child at 5:46 AM on the morning of May 08, 2023. On delivery the head the anterior shoulder then easily delivered followed by the rest the 's body atraumatically. The baby was vigorous. We allowed the cord to continue to pulsate for approximately 1 minute. The cord was then doubly clamped and cut and the infant was placed on the mother's abdomen for further care. The nurse assigned Apgars of 7 at 1 minute and 9 at 5 minutes. We then obtained cord blood. She received IV oxytocin using gentle traction on the cord and countertraction the fundus I was able to easily deliver the placenta intact 3 minutes after delivery. He had a normal three-vessel cord. She had a small posterior first- degree vaginal laceration that was repaired with interrupted 3-0 Vicryl Rapide suture. She has a negative blood, she is rubella immune and was group B streptococcus negative. Her forest supervisor Dr. Murcia. Estimated blood loss was approximately 200 cc. Laceration:: vaginal Placental Delivery Description: Spontaneous
[2023-05-09 06:40] LABS: Hematocrit 31.4 % (37.0-47.0); Hemoglobin 9.8 g/dL (12.2-16.2)
[2023-05-09 08:06] VITALS: BP 122/69; PULSE 96; RESP 18; TEMP 36.7; O2SAT 98
--- NOTE | 2023-05-09 08:40 | EXP.ACUTE.PN ---
Subjective *Date: 05/09/23 *Time: 08:40 Interval history: She is doing very well this morning. She is eating and drinking and ambulating. She is breast-feeding. Her lochia is normal. She would like to go home today. Medical Exam Vital signs and Labs for Last 24 Hours: Laboratory Results - last 24 hr 05/07/23 09:42: Antibody Identification Anti-D 05/09/23 06:25: Hgb 9.8 L, Hct 31.4 L, Baby's Rh Status Positive I & O for Labs for Last 24 Hours: Intake & Output 05/06/23 05/07/23 05/08/23 05/09/23 11:59 11:59 11:59 11:59 Weight 179 lb 179 lb Head: Present atraumatic and normocephalic ENT: Present normal exam Neck: Present normal inspection Respiratory: Present normal respiratory effort; Absent accessory muscle use Assessment and Plan *Assessment and plan (1) Normal delivery: Status: Acute Category: Medical Code(s): O80 - Encounter for full-term uncomplicated delivery (2) Rubella non-immune status, antepartum: Status: Acute Category: Medical Code(s): O09.899 - Supervision of other high risk pregnancies, unspecified trimester; Z28.39 - Other underimmunization status (3) Rh negative state in antepartum period: Status: Acute Category: Medical Code(s): O26.899 - Other specified related conditions, unspecified trimester; Z67.91 - Unspecified blood type, Rh negative Plan She is doing very well this morning. She is breast-feeding. She would like to go home later today.
--- NOTE | 2023-05-09 15:48 | EXP.DC.SUM ---
General Admission date:: 05/07/23 Discharge date: 05/09/23 HPI HPI HPI: She is a healthy 27-year-old 3 para 2 who is 39 and 4 weeks gestational age. She came in with leaking fluid. We have tested her AmniSure twice and it is negative. We did an ultrasound that showed a biophysical profile profile of 8 out of 8 along with an amniotic fluid index that was 7.9 which is normal. She is having occasional contraction. Her cervix is just 1 cm. Hospital Course Hospital Course Hospital Course: Even though her AmniSure was negative she continued to leak fluid. I felt that she had ruptured her membranes so we elected to induce her labor. She had Cervidil placed on the evening of May 07, 2023 and under labor epidural progressed to full dilation. She delivered spontaneously a liveborn male child at 5:46 AM on the morning of May 08, 2023. The baby weighed 8 pounds 13 ounces and had Apgars of 7 at 1 minute and 9 at 5 minutes. She has done well and has remained afebrile throughout her hospitalization. She is eating and drinking and ambulating. She is breast-feeding. She has a Rh- blood and she did receive RhoGAM. She is rubella nonimmune and received MMR. She was group B streptococcus negative. She is discharged home to follow-up with Dr. Goins in approximately 2 weeks time. She will continue with her vitamins and iron. Her condition on discharge is stable and improved. Exam Data for Last 24 hours Vital signs and Labs for Last 24 Hours: Temp Pulse Resp BP Pulse Ox O2 Del Method 98.0 F 96 H 18 122/69 98 Room Air 05/09/23 08:06 05/09/23 08:06 05/09/23 08:06 05/09/23 08:06 05/09/23 08:06 05/09/23 08:06 Laboratory Results - last 24 hr 05/09/23 06:25: Hgb 9.8 L, Hct 31.4 L, Screen Negative, Baby's Rh Status Positive, Rhogam Infusion Rhogam release I & O for Last 24 hours: Intake & Output 05/07/23 05/08/23 05/09/23 05/10/23 11:59 11:59 11:59 11:59 Weight 179 lb 179 lb Constitutional Constitutional: no acute distress *Routine HEENT Exam Head: Present normocephalic ENT: Present mucous membranes moist *Routine Respiratory Exam Respiratory: Present normal respiratory effort; Absent accessory muscle use Results Data Completed and Pending Labs on day of discharge: Labs from last 24 hours 05/09/23 06:25 Hgb 9.8 L Hct 31.4 L Screen Negative Baby's Rh Status Positive Rhogam Infusion Rhogam release DS: Diagnosis Discharge Diagnosis (1) Normal delivery: Status: Acute Code(s): O80 - Encounter for full-term uncomplicated delivery (2) Rubella non-immune status, antepartum: Status: Acute Code(s): O09.899 - Supervision of other high risk pregnancies, unspecified trimester; Z28.39 - Other underimmunization status (3) Rh negative state in antepartum period: Status: Acute Code(s): O26.899 - Other specified related conditions, unspecified trimester; Z67.91 - Unspecified blood type, Rh negative Meds Home Medications and Allergies Home Medications Medication Instructions Recorded Confirmed Type prenat.vits,viraj,[id number] 1 tab PO DAILY Supplement 11/07/22 05/07/23 History pantoprazole 40 mg tablet,delayed 40 mg PO DAILY Acid Reflux 05/07/23 05/07/23 History release New Prescriptions to Start Prescriptions: Allergies Allergy/AdvReac Type Severity Reaction Status Date / Time No Known Allergies Allergy Verified 04/30/23 16:05 Discharge Plan Disposition Patient Disposition: Home, Self-Care Follow up Plan Follow up with: Marilyn Goins DO [Staff Physician] - 05/23/23 3:45 pm Prescriptions/Medication Reconciliation: Continued prenat.vits,viraj,[id number] Tablet 1 tab PO DAILY pantoprazole 40 mg tablet,delayed release (DR/EC) 40 mg PO DAILY Patient Comments: TAKE 1 TABLET BY MOUTH ONCE DAILY Problem Reconciliation Problems Reviewed?: Yes
== END 2023-05-09 16:50 | disposition home or self-care (01) | DRG 807 ==
LOC: OBOUT 12:41 → OB 12:41
PROVIDERS: Admitting Provider Nurse Practitioner Obstetrics & Gynecology; PCP Family Medicine; Visit Provider Nurse Practitioner Obstetrics & Gynecology
DX: O70.0 First degree perineal laceration during delivery (principal); Z37.0 Single live birth; Z3A.39 39 weeks gestation of pregnancy; Z14.8 Genetic carrier of other disease; Z23 Encounter for immunization
CPT/HCPCS: 59409; 36415; 59025; 76819; 80305; 81001; 84112; 85014; 85018; 85025; 85461; 86850; 86870; 87636; 90707; 94761; G0283; J0595; J2405; J2790

== ENCOUNTER 2023-10-30 15:12 | Emergency (ER) | payer BC, SELFPAY ==
[2023-10-30 16:10] VITALS: BP 111/65; PULSE 91; RESP 19; TEMP 36.6; O2SAT 98; BMI 24.8
[2023-10-30 16:23] VITALS: BP 111/65; PULSE 91; RESP 19; TEMP 36.6; O2SAT 98
[2023-10-30 16:39] LABS: UTC Influenza A Antigen Negative (Negative); UTC Influenza B Antigen Negative (Negative)
--- NOTE | 2023-10-30 16:46 | ED_ITS ---
Discharge Plan Disposition Patient Disposition: Home, Self-Care Condition: Good Prescriptions Prescriptions: New pseudoephedrine HCl [Sudafed 12 Hour] 120 mg tablet extended release 120 mg PO Q12H PRN (Reason: nasal congestion) Qty: 20 0RF ondansetron 4 mg tablet,disintegrating 4 mg PO Q8H PRN (Reason: nausea and vomiting) Qty: 10 0RF Referrals Follow up/Referrals: Jersey Crook MD [Primary Care Provider] - See instructions Activity Restrictions/Add. Instructions Additional Instructions/Restrictions: *Monitor Temp, Over the counter Motrin or Tylenol as directed/as needed Tylenol every 4 hours and Motrin every 6 hours (as long as your family doctor has told you that you can take it) for fever or pain. and straight to ER if unable to lower temp less than 101.0 after medication given *Warm salt water gargles may help to soothe the throat *Throat Lozenges? *Warm fluids like tea with honey may help to soothe the throat? *Sleep elevated *Humidifier/Vaporizer Follow up IMMEDIATELY for new or worsening symptoms or no Noticeable improvement over the next 48-72 hours. 911 for difficulty breathing or swallowing You were tested for today for COVID19 your test result should be back in the next 24-72hours, you may check your results on the [facility] if your COVID or Flu is positive you must Quarantine for 5 days Clinical Impressions Clinical Impression: Viral syndrome Stand Alone Forms Stand Alone Forms: Work/School Release Instructions Patient Instructions: DI for Viral Syndrome, DI for Nausea -- Adult, Pseudoephedrine Discharge ED Provider: [place]yl[place] Merr[place] [facility] [place] General Stated complaint: congestion, fever, upset stomach Mode of Arrival: Ambulatory Source of Information: Patient Limitations: No Limitations Time Seen by Provider: 10/30/23 16:46 Description of Symptoms (Recalled from Triage Doc. by RN): PATIENT C/O HEADACHE, CONGESTION, FEVER AND NAUSEA X 2 DAYS HEENT Symptoms (Recalled from RN notes): Yes Resp Symptoms (Recalled from RN notes): No Skin Symptoms (Recalled from RN notes): No MS Symptoms (Recalled from RN notes): No Functional Status (Recalled from RN notes): WNL History of Present Illness Provider Complaint: Patient states that for the last couple of days she has not been feeling well States that she has been having nasal congestion, fever, chills and nausea States that several people is out of work right now sick so when she was still not feeling any better this evening she came in to get checked Related Data Previous Rx's Medication Instructions Recorded ondansetron 4 mg disintegrating 4 mg PO Q8H PRN nausea and 10/30/23 tablet vomiting #10 tabs pseudoephedrine HCl 120 mg 120 mg PO Q12H PRN nasal 10/30/23 tablet,extended release (Sudafed congestion #20 tabs 12 Hour) Allergies Allergy/AdvReac Type Severity Reaction Status Date / Time No Known Allergies Allergy Verified 10/09/23 10:03 Worker's Comp Is this a Worker's Comp case?: No [facility] Disclaimer: The information contained in this section may have been updated after the patient was seen, as this information can be updated by other users. 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 Rubella non-immune status, antepartum Family History Other Cancer Diabetes Social History Smoking Status: Never smoker alcohol intake: current substance use type: denies use current occupational status: employed Travel in the last 8 weeks: None household members: family housing: house ROS Obtained: Yes All systems reviewed & no additional complaints except as documented and Yes Systems reviewed as appropriate & no additional complaints except as documented Constitutional Constitutional: Reports system reviewed and no additional complaints, except as documented, Reports as per HPI, Reports body ache, Reports chills, Reports fever(s) and Reports headache(s) ENT Ears, Nose, Mouth, and Throat: Reports system reviewed and no additional complaints, except as documented, Reports as per HPI, Reports headache(s), Reports nasal congestion and Reports nasal discharge Cardiovascular Cardiovascular: Reports system reviewed and no additional complaints, except as documented and Reports as per HPI Respiratory Respiratory: Reports system reviewed and no additional complaints, except as documented and Reports as per HPI Gastrointestinal Gastrointestingal: Reports system reviewed and no additional complaints, except as documented, as per HPI and nausea Genitourinary Female Genitourinary: Reports system reviewed and no additional complaints, except as documented and Reports as per HPI Neurologic Neurologic: Reports headache(s) Physical Exam General General appearance: alert and in no apparent distress ENT ENT exam: Present mucous membranes moist Expanded ENT Exam Nose exam: Present other (reports clear drainage); Absent sinus tenderness Throat exam: Present normal inspection Neck Neck exam: Present normal inspection; Absent full ROM or trachea midline Respiratory Respiratory exam: Present normal lung sounds bilaterally; Absent respiratory distress or wheezes Cardiovascular Cardiovascular exam: Present regular rate, normal rhythm and normal heart sounds Abdominal Exam Abdominal exam: Present soft and normal bowel sounds; Absent distention or tenderness Neurological Exam Neurological exam: Present alert, oriented X3 and normal gait Medical Decision Making Mike Inquiry Pt receiving controlled substance: No Mike was queried for this patient: No Vital Signs: 10/30/23 16:10 10/30/23 16:23 Temperature 97.8 F 97.8 F Temperature Source Oral Pulse Rate 91 H Pulse Rate [Left Brachial] 91 H Respiratory Rate 19 19 Blood Pressure 111/65 Blood Pressure [Left Arm] 111/65 Blood Pressure Mean [Left Arm] 80 Blood Pressure Source [Left Arm] Automatic Cuff Blood Pressure Position [Left Arm] Sitting 02 Sat by Pulse Oximetry 98 Oxygen Delivery Method Room Air Lab Data Lab results reviewed: Yes I reviewed the patient's lab results. Lab Results 10/30/23 16:24: Influenza Type A Ag Negative, Influenza Type B Ag Negative Orders (Tests/Meds): ORDERS Category Date Time Status Covid-19 Nasal PCR ([facility]) Routine Lab 10/30/23 16:24 Received
== END 2023-10-30 17:04 | disposition home or self-care (01) ==
PROVIDERS: Emergency Provider Nurse Practitioner; PCP Family Medicine
DX: R51.9 Headache, unspecified (principal); R50.9 Fever, unspecified; R09.81 Nasal congestion; R11.0 Nausea; B34.9 Viral infection, unspecified; F41.9 Anxiety disorder, unspecified
CPT/HCPCS: 87635; 87804; 99212; 99214; G0463

== ENCOUNTER 2024-05-20 10:16 | Outpatient (CLI) | payer BC, SELFPAY ==
[2024-05-20 10:54] LABS: Alanine Aminotransferase 26 U/L (12-78); Albumin Level 4.2 g/dl (3.5-5.0); Albumin/Globulin Ratio 1.6 (1.1-1.8); Alkaline Phosphatase 34 U/L (38-126); Anion Gap 9.1 mEq/L (5-15); Aspartate Amino Transferase 27 U/L (14-36); Bilirubin,Total 0.4 mg/dl (0.2-1.3); Blood Urea Nitrogen 20 mg/dl (7-17); Calcium 9.4 mg/dl (8.4-10.2); Carbon Dioxide 28 mmol/L (22.0-30.0); Chloride 104 mmol/L (98-107); Estimated Glomerular Filt Rate 98 ml/min (>60); GFR (African American) 119 ML/MIN (>60); Globulin 2.7 g/dL (1.3-3.2); Glucose 86 mg/dl (74-100); Potassium 4.1 mmoL/L (3.5-5.1); Sodium 137 mmol/L (136-145); Total Protein,Serum 6.9 g/dl (6.3-8.2)
== END 2024-05-20 23:59 | disposition home or self-care (01) ==
LOC: LAB 10:17
PROVIDERS: PCP Family Medicine; Visit Provider Obstetrics & Gynecology
DX: L70.9 Acne, unspecified (principal)
CPT/HCPCS: 36415; 80053

== ENCOUNTER 2024-05-21 09:51 | Outpatient (CLI) | payer BC, SELFPAY ==
[2024-05-21 18:11] LABS: Adenovirus,PCR Not Detected (NotDetected); Bordetella Pertussis Not Detected (NotDetected); Chlamydophila Pneumoniae, PCR Not Detected (NotDetected); Coronavirus 19, PCR Not Detected (NotDetected); Coronavirus 229E Not Detected (NotDetected); Coronavirus NL63 Not Detected (NotDetected); Coronavirus OC43 Not Detected (NotDetected); Coronovirus HKU1,PCR Not Detected (NotDetected); Human Metapneumovirus Not Detected (NotDetected); Influenza A, PCR Not Detected (NotDetected); Influenza AH1, 2009 Not Detected (NotDetected); Influenza AH1, PCR Not Detected (NotDetected); Influenza AH3,PCR Not Detected (NotDetected); Influenza B, PCR Not Detected (NotDetected); Mycoplasma Pneumoniae, PCR Not Detected (NotDetected); Parainfluenza 1, PCR Not Detected (NotDetected); Parainfluenza 2, PCR Not Detected (NotDetected); Parainfluenza 3, PCR Not Detected (NotDetected); Rhinovirus/Enterovirus Not Detected (NotDetected)
[2024-05-21 22:06] LABS: Parainfluenza 4, PCR Not Detected (NotDetected); Respiratory Syncytial Virus Not Detected (NotDetected)
== END 2024-05-21 23:59 | disposition home or self-care (01) ==
LOC: LAB.DROPOF 05-22 09:53
PROVIDERS: PCP Nurse Practitioner Family; Visit Provider Nurse Practitioner Family
DX: R68.89 Other general symptoms and signs (principal)
CPT/HCPCS: 87070; 87581; 87632; 87635; 87798

== ENCOUNTER 2024-08-08 08:27 | Emergency (ER) | payer BC, SELFPAY ==
[2024-08-08 08:50] VITALS: BP 109/71; PULSE 99; RESP 18; TEMP 36.5; O2SAT 97; BMI 24.0
--- NOTE | 2024-08-08 09:11 | EXP.UTC ---
Discharge Plan Disposition Patient Disposition: Home, Self-Care Condition: Good Prescriptions Prescriptions: New amoxicillin 500 mg capsule 500 mg PO TID 7 Days Qty: 21 0RF benzonatate 100 mg capsule 100 mg PO TID PRN (Reason: cough) Qty: 30 0RF methylprednisolone [Medrol (Samuel)] 4 mg tablets,dose pack See Rx Instructions .Route .COMPLEX 6 Days Qty: 21 0RF Rx Instructions: taper pack; No Action Nexplanon 68 mg implant 68 mg subdermal ONCE Referrals Follow up/Referrals: Ofelia Warren APRN [Primary Care Provider] - See instructions Activity Restrictions/Add. Instructions Additional Instructions/Restrictions: *Monitor Temp, Over the counter Motrin or Tylenol as directed/as needed Tylenol every 4 hours and Motrin every 6 hours (as long as your family doctor has told you that you can take it) for fever or pain. and straight to ER if unable to lower temp less than 101.0 after medication given *Warm salt water gargles may help to soothe the throat *Throat Lozenges? *Warm fluids like tea with honey may help to soothe the throat? *Sleep elevated *Humidifier/Vaporizer Take medication as prescribed Your throat swab was sent for culture. Those results are typically sent to your primary care. Be sure to follow up in 2-3 days with your family doctor/primary care physician if no improvement so they can review those result and treat if necessary. If you don?t have a primary care doctor, I recommend you get one but in the mean time, you will have to return to a walk in clinic Follow up IMMEDIATELY for new or worsening symptoms or no Noticeable improvement over the next 48-72 hours. 911 for difficulty breathing or swallowing Clinical Impressions Clinical Impression: Otitis media Qualifiers: Otitis media type: unspecified Laterality: left Qualified Code(s): H66.92 - Otitis media, unspecified, left ear Instructions Patient Instructions: Middle Ear Infection, Sore Throat Print Language Print Language: Stateless Discharge ED Provider: yKlie Merritt [facility] [place] HPI General Stated complaint: sore throat, pain in ears, cough Mode of Arrival: Ambulatory Source of Information: Patient Limitations: No Limitations Time Seen by Provider: 08/08/24 09:11 Description of Symptoms (Recalled from Triage Doc. by RN): PATIENT C/O SORE THROAT, FEVER, COUGH, AND EAR PAIN SINCE YESTERDAY HEENT Symptoms (Recalled from RN notes): Yes Resp Symptoms (Recalled from RN notes): Yes Skin Symptoms (Recalled from RN notes): No MS Symptoms (Recalled from RN notes): No Functional Status (Recalled from RN notes): WNL History of Present Illness Provider Complaint: Patient states that she started feeling bad several days ago she has been having sore throat, bilateral ear pain and pressure, cough and fever states today she wasnt feeling any better so she came in to get checked Related Data Home Medications ?Medication ?Instructions ?Recorded ?Confirmed etonogestrel 68 mg subdermal 68 mg subdermal ONCE 05/20/24 08/08/24 implant (Nexplanon) Previous Rx's ?Medication ?Instructions ?Recorded amoxicillin 500 mg capsule 500 mg PO TID 7 days #21 caps 08/08/24 benzonatate 100 mg capsule 100 mg PO TID PRN cough #30 caps 08/08/24 methylprednisolone 4 mg tablets in See Rx Instructions .Route 08/08/24 a dose pack (Medrol (Samuel)) .COMPLEX 6 days #21 tabs Allergies Allergy/AdvReac Type Severity Reaction Status Date / Time No Known Allergies Allergy Verified 07/02/24 11:06 Worker's Comp Is this a Worker's Comp case?: No [facility] Disclaimer: The information contained in this section may have been updated after the patient was seen, as this information can be updated by other users. 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 Rubella non-immune status, antepartum Atypical chest pain Surgical History No significant past surgical history Family History Other Cancer Diabetes Social History Smoking Status: Never smoker second hand exposure: No alcohol intake: current alcohol intake frequency: holidays/special occasions only counseling given: No substance use type: denies use counseling given: No current occupational status: employed Travel in the last 8 weeks: None adopted: No caregiver/support person: Yes foster care: No household members: family housing: house lives independently: Yes marital status: number of children: 2 number of grandchildren: 0 education level: high school current occupation: works at the [employer]; has been there for 10 years Hx Recent Travel: No sexually active: Yes caffeine: Yes physical activity: none working smoke detector in home: Yes fire extinguisher in home: Yes carbon monox detector in home: Yes firearms in home: Yes firearms unloaded and locked: Yes do you feel safe at home: Yes victim of physical abuse: No victim of emotional abuse: No victim of sexual abuse: No would you like helpful sources: No ROS Obtained: Yes All systems reviewed & no additional complaints except as documented and Yes Systems reviewed as appropriate & no additional complaints except as documented Constitutional Constitutional: Reports system reviewed and no additional complaints, except as documented, Reports as per HPI and Reports fever(s) ENT Ears, Nose, Mouth, and Throat: Reports system reviewed and no additional complaints, except as documented, Reports as per HPI, Reports otalgia and Reports sore throat Cardiovascular Cardiovascular: Reports system reviewed and no additional complaints, except as documented and Reports as per HPI Respiratory Respiratory: Reports system reviewed and no additional complaints, except as documented, Reports as per HPI and Reports cough Gastrointestinal Gastrointestingal: Reports system reviewed and no additional complaints, except as documented and as per HPI Physical Exam General General appearance: alert and in no apparent distress ENT ENT exam: Present mucous membranes moist Expanded ENT Exam TM/Canal exam: Left TM: erythema (mild redness noted) and Bilateral TM: bulging Nose exam: Present sinus tenderness Throat exam: Present other (Pharyngeal erythema noted with PND) Respiratory Respiratory exam: Present normal lung sounds bilaterally; Absent respiratory distress or wheezes Cardiovascular Cardiovascular exam: Present regular rate, normal rhythm and normal heart sounds Neurological Exam Neurological exam: Present alert, oriented X3 and normal gait Medical Decision Making Medical Records Screening: Per USPSTF and CDC recommendations, given the prevalence of disease in our region, it is our hospital?s policy to screen for HIV and viral Hepatitis for all patients aged 18 and over and those with ongoing risk factors. Mike Inquiry Pt receiving controlled substance: No Mike was queried for this patient: No Vital Signs: 10/11/24 08:50 Temperature 97.7 F Temperature Source Oral Pulse Rate [Right Brachial] 99 H Respiratory Rate 18 Blood Pressure [Right Arm] 109/71 L Blood Pressure Mean [Right Arm] 83 Blood Pressure Source [Right Arm] Automatic Cuff Blood Pressure Position [Right Arm] Sitting 02 Sat by Pulse Oximetry 97 Oxygen Delivery Method Room Air Lab Data Lab results reviewed: Yes I reviewed the patient's lab results.
[2024-08-08 09:23] VITALS: BP 109/71; PULSE 99; RESP 18; TEMP 36.5; O2SAT 97
[2024-08-08 09:25] LABS: UTC Strep Screen (Rapid) Negative (Negative)
== END 2024-08-08 09:33 | disposition home or self-care (01) ==
PROVIDERS: Emergency Provider Nurse Practitioner; PCP Nurse Practitioner Family
DX: H66.92 Otitis media, unspecified, left ear (principal)
CPT/HCPCS: 87880; 99213; G0381

== ENCOUNTER 2024-08-21 14:33 | Outpatient (CLI) | payer BC, SELFPAY | END 2024-08-21 23:59 | disposition home or self-care (01) | LOC: LAB.DROPOF 08-22 13:26 | PROVIDERS: PCP Student in an Organized Health Care Education/Training Program; Visit Provider Student in an Organized Health Care Education/Training Program | DX: J02.9 Acute pharyngitis, unspecified (principal) | CPT/HCPCS: 87070 ==

== ENCOUNTER 2025-05-25 21:54 | Outpatient (CLI) | payer BC, SELFPAY ==
[2025-05-26 12:23] LABS: Coronavirus 19, PCR Not Detected (NotDetected); Influenza A, PCR Not Detected (NotDetected); Influenza B, PCR Not Detected (NotDetected)
== END 2025-05-25 23:59 | disposition home or self-care (01) ==
LOC: LAB.DROPOF 21:56
PROVIDERS: PCP Nurse Practitioner Family; Visit Provider Nurse Practitioner Family
DX: R50.9 Fever, unspecified (principal)
CPT/HCPCS: 87631

== ENCOUNTER 2025-07-15 08:34 | Outpatient (CLI) | payer BC, SELFPAY ==
--- OUTSIDE RECORDS SUMMARY | 2024-09-24 07:00 | XMS_ITS ---
[facility] [address] [facility] [address] [place] [id number] Care Team Providers Care Director Of Engineering Name Role Phone Jose Crook Primary Care Provider [phone] Anna Doty [phone] Allergies Allergen (clinical drug ingredient) Drug/Non Drug Allergy documented on EMR Reaction Allergy Type Onset Date Status nickel Nickel Unknown Allergy Active REASON FOR VISIT Blood in Stool Encounters Encounter Location Date Provider Diagnosis [facility] [address] [place] [phone] 09/24/2024 Anna Doty Plan Of Treatment No Information Progress Notes * GUS SUAZOOB:1995 ( 29 yo F)Acc No.[id number]:09/24/2024 Progress Notes Patient: VANCE PORTER Provider: KEVIN Silver :1995 A ge:28 Y S ex:Female Date:09/24/2024 Address:[address] [id number] Pcp:Jose Crook Subjective: * Chief Complaints: * 1 . Blood in Stool. * HPI: G astroenterology: 28 year old female presents with c/o Blood in Stool. * ROS: D ERMATOLOGY: no R ni. n o H addis. G ASTROENTEROLOGY: no N ausea. n o V omiting. U ROLOGY: no D ifficulty urinating. n o B lood in urine. * Medical History: A llergic Rhinitis. * Surgical History: D enies Past Surgical History. * Hospitalization/Major Diagno stic Procedure: [facility]-glue in right eye 05/2010, [facility] ER- Vaginal Bleeding 02/10/2013. * Family History: F ather: alive. M other: alive. 1 brother(s) , 1 sister(s) . . * Social History: C URRENT TOBACCO USE S moking Status: Patient does NOT smoke. C affeine: yes, frequency: tea, daily. Home smoke detector use: yes. Marital Status: Single. Past smoking status: yes, daily 2nd hand smoke exposure. Alcohol: No. Sexually active: no.. * Allergies: N ickel. Objective: * Vitals: Assessment: Plan: * Treatment: * Images: Billing Information: * Visit Code: * Procedure Codes: * Electronic signature of KEVIN Benito on 07/15/2025 at 09:03 AM EDT Sign off status: Pending * Provider: KEVIN Silver Date: 1 11/24/2023 Generated for Winter lloyd/Negro/Josesmitting on: 0 07/15/2025 09:03 AM EDT History and Physical Notes * HPI (History of Present Illness) Category Sub-Category Detail Notes Category Not es Gastroenterology Blood in Stool
[2025-07-15 08:56] LABS: Hematocrit 40.8 % (37.0-47.0); Hemoglobin 13.7 g/dL (12.2-16.2); Immature Granulocytes % 0.2 %; Mean Corpuscular HGB Conc 33.6 g/dL (31.8-35.4); Mean Corpuscular Hemoglobin 30.0 pg (27.0-31.2); Mean Corpuscular Volume 89.5 fl (81-99); Nucleated Red Blood Cells % 0 %; Platelet Count 235 K/mm3 (142-424); Red Blood Count 4.56 M/mm3 (4.20-5.40); Red Cell Distribution Width-SD 39.9 fL; White Blood Count 5.4 K/mm3 (4.8-10.8)
--- OUTSIDE RECORDS SUMMARY | 2025-07-15 09:03 | XMS_ITS | Patient Health Record ---
[facility] [address] [facility] [address] [facility] [address] [place] [phone] Care Team Providers Care Redevelopment Manager Name Role Phone Jose Crook Primary Care Provider Anna Doty Unavailable [phone] Allergies Allergen (clinical drug ingredient) Drug/Non Drug Allergy documented on EMR Reaction Allergy Type Onset Date Status nickel Nickel Unknown Allergy Active Medications Medication SIG (Take, Route, Frequency, Duration) Notes Start Date End Date Status Tamiflu 75 MG 1 cap(s) orally once daily; Duration: 10 day(s) 02/10/2022 Not-Taking Nexplanon 68 MG 1 ea subcutaneously once; Duration: 1 dose(s) Not-Taking Medrol 4 MG as directed orally daily; Duration: 6 days 12/27/2021 Not-Taking Nadolol 20 MG 1 tab(s) orally once a day 01/09/2022 Not-Taking DULoxetine HCl 30 MG 1 cap(s) orally 2 times a day; Duration: 30 day(s) 09/09/2018 Not-Taking Zithromax Z-Samuel 250 MG 2 pills first day then one daily for 4 days orally as directed; Duration: 5 days 11/02/2020 Not-Taking Sertraline HCl 25 MG 1 tab(s) orally once a day; Duration: 30 day(s) 02/12/2017 Not-Taking Hyoscyamine Sulfate 0.125 MG 1 tab(s) sublingually every 4 hours, prn 04/13/2022 Not-Taking Ubrelvy 100 MG 1 tab(s) orally once 2 100mg samples 12/27/2021 Not-Taking Immunizations Vaccine Route Administration Date Status Comme nts DT, 7 YEARS OR OLDER IM Intramuscular 05/25/2005 Administe red H1N1 flu vaccine IM Intramuscular 09/02/2009 Administered MMR Unknown 08/31/1998 Administered MMR Unknown 02/25/1999 Administered Tetanus Tdap-Adacel (over 7yrs) Unknown 02/26/2020 Administered xFlu shot-36 months and older IM Intramuscular 09/30/2009 Administered xFlu shot-36 months and older IM Intramuscular 08/18/2011 Administered xFluzone (6mos and older)-trivalent IM Intramuscular 08/18/2010 Administered Problems Problem Type SNOMED Code ICD Code Onset Dates Problem Status W/U Status Risk Notes Problem Anxiety (18406039) Anxiety (F41.9) Active confirmed Problem Generalized anxiety disorder (55809952) Generalized anxiety disorder (F41.1) Active confirmed Problem New daily persistent headache (734334123067633 ) New daily persistent headache (G44.52) Active confirmed Problem Episodic tension-type headache (270811547) Headache, frequent episodic tension-type (G44.219) Active confirmed Plan Of Treatment No Information Insurance Providers Payer Name Payer Address Payer Phone Subscriber Number Group Number Insured Name Patient Relationship to Insured Coverage Start Date Coverage End Date [employer] [facility] [address] [place] [address] [id number] VANCE SUAZO Self - patient is the insured Medical (General) History Medical History History ICD Code Allergic Rhinitis Surgical History Surgery Date(Month/Year) none Hospitalization History Reason Date(Month/Year) [facility] ER-glue in right eye 05/2010 [facility] ER- Vaginal Bleeding 02/10/2013
[2025-07-15 09:34] LABS: Alanine Aminotransferase 32 U/L (12-78); Albumin Level 4.5 g/dl (3.5-5.0); Albumin/Globulin Ratio 1.7 (1.1-1.8); Alkaline Phosphatase 35 U/L (38-126); Anion Gap 11.2 mEq/L (5-15); Aspartate Amino Transferase 31 U/L (14-36); Bilirubin,Total 0.5 mg/dl (0.2-1.3); Blood Urea Nitrogen 18 mg/dl (7-17); Calcium 9.1 mg/dl (8.4-10.2); Carbon Dioxide 30 mmol/L (22.0-30.0); Chloride 101 mmol/L (98-107); Creatinine,Serum 0.70 mg/dl (0.52-1.04); Estimated Glomerular Filt Rate 98 ml/min (>60); GFR (African American) 118 ML/MIN (>60); Globulin 2.7 g/dL (1.3-3.2); Glucose 86 mg/dl (74-100); Potassium 4.2 mmoL/L (3.5-5.1); Sodium 138 mmol/L (136-145); Total Protein,Serum 7.2 g/dl (6.3-8.2)
== END 2025-07-15 23:59 | disposition home or self-care (01) ==
PROVIDERS: PCP Family Medicine; Visit Provider Plastic Surgery
DX: Z01.812 Encounter for preprocedural laboratory examination (principal); Z01.810 Encounter for preprocedural cardiovascular examination
CPT/HCPCS: 36415; 80053; 85025